=== PATIENT | female | born 1960 | race Two or more races ===

== ENCOUNTER 2017-08-20 13:52 | Emergency (ER) | payer OTHER ==
[~2017-08-20] VITALS: Ht 160 cm; Wt 90.7 kg
--- NOTE | 2017-08-20 14:50 | NUR ---
WORSENING COUGH X 10 DAYS, OTC MEDS NOT HELPING. PATIENT RECEIVED AAO4. APPEARS IN NO APPARENT DISTRESS. AFEBRILE. VSS
[2017-08-20] MEDS ORDERED: ONDANSETRON HCL/PF 4 MG/2 ML VIAL IVP ONE (15:00)
[2017-08-20] MEDS ORDERED: IV NS 0.9% 1,000 ML IV ONE (15:00)
[2017-08-20] MEDS ORDERED: ONDANSETRON HCL/PF 4 MG/2 ML VIAL ONE (15:02)
[2017-08-20 15:16] LABS: BASOPHILS # (AUTO) 0.2 /CMM (0.0-0.2); BASOPHILS % (AUTO) 2.2 % (0.0-2.0); EOSINOPHILS # (AUTO) 0.3 /CMM (0.0-0.7); HEMATOCRIT 43 % (33-45); HEMOGLOBIN 15.2 g/dL (11.5-14.8); LYMPHOCYTES % (AUTO) 34.2 % (20.0-44.0); MEAN CORPUSCULAR HEMOGLOBIN 31 PG (26.0-33.0); MEAN CORPUSCULAR HGB CONC 35 g/dl (31.0-36.0); MEAN CORPUSCULAR VOLUME 88 fL (82-100); MONOCYTES # (AUTO) 0.5 /CMM (0.1-1.30); MONOCYTES % (AUTO) 5.2 % (2.0-12.0); NEUTROPHILS # (AUTO) 4.8 /CMM (1.8-8.9); NEUTROPHILS % (AUTO) 55.4 % (43.0-81.0); PLATELET COUNT (AUTO) 329 /CMM (150-450); RDW COEFFICIENT OF VARIATION 11.1 (11.5-15.0); WHITE BLOOD COUNT (AUTO) 8.8 K/uL (4.3-11.0)
[2017-08-20 15:29] LABS: CALCIUM, SERUM 9.1 mg/dL (8.5-10.1); CREATININE 0.8 mg/dL (0.6-1.3); POTASSIUM 3.8 mmol/L (3.5-5.1)
[2017-08-20 15:47] VITALS: BP 154/85
--- NOTE | 2017-08-20 15:47 | NUR ---
IV removed. Catheter intact and site benign. Pressure and 4x4 applied to site. No bleeding noted.
--- NOTE | 2017-08-20 15:47 | NUR ---
Patient discharged to home in stable condition. Written and verbal after care instructions given. Patient verbalizes understanding of instruction.
== END 2017-08-20 15:48 | disposition home or self-care (01) ==
LOC: ER 13:53
DX: J06.9 Acute upper respiratory infection, unspecified (principal); J45.909 Unspecified asthma, uncomplicated
CPT/HCPCS: 36415; 71010; 80048; 85025; 96361; 96374; 99285; A4606; J2405; J7030; Z7610

== ENCOUNTER 2017-08-28 18:13 | Emergency (ER) | payer OTHER ==
[~2017-08-28] VITALS: Ht 170.2 cm; Wt 95.3 kg
[2017-08-28 20:03] VITALS: BP 152/103
--- NOTE | 2017-08-29 00:09 | NUR ---
INFORMED BY EMT "PT LEFT LONG TIME AGO"
== END 2017-08-29 00:10 | disposition left against medical advice (07) ==
LOC: ER 18:17
DX: Z53.21 Procedure and treatment not carried out due to patient leaving prior to being seen by health care provider (principal)
CPT/HCPCS: A4606; J7030; Z7610